=== PATIENT | female | born 1980 | race Caucasian/White ===

== ENCOUNTER 2022-07-01 11:18 | Emergency (ER) | payer BC ==
[~2022-07-01] VITALS: Ht 162.6 cm; Wt 61.2 kg
[2022-07-01] MEDS ORDERED: ASPIRIN 81 MG TAB.CHEW ONE (11:43)
[2022-07-01] MEDS ORDERED: LORAZEPAM 1 MG TABLET ONE (11:43)
[2022-07-01] MEDS ORDERED: IBUPROFEN 400 MG TABLET ONE (11:44)
[2022-07-01] MEDS ORDERED: LORAZEPAM 0.5 MG TABLET PO ONE (11:45)
[2022-07-01] MEDS ORDERED: ASPIRIN 81 MG TAB.CHEW PO ONE (11:45)
[2022-07-01] MEDS ORDERED: IBUPROFEN 400 MG TABLET PO ONE (11:45)
[2022-07-01 12:02] LABS: HEMATOCRIT 39.4 % (31.2-41.9); PLATELET COUNT (AUTO) 368 K/uL (179-408)
[2022-07-01 12:15] LABS: CARBON DIOXIDE 24 mmol/L (21-32); CHLORIDE 103 mmol/L (98-107); CREATININE 0.5 mg/dL (0.6-1.3); GLUCOSE 96 mg/dL (74-106); POTASSIUM 3.7 mmol/L (3.5-5.1); UREA NITROGEN, BLOOD 10 mg/dL (7-18)
[2022-07-01 12:27] LABS: ALANINE AMINOTRANSFERASE 26 U/L (14-59); ALKALINE PHOSPHATASE 67 U/L (50-136); ASPARTATE AMINOTRANSFERASE 13 U/L (15-37); BILIRUBIN,TOTAL 0.4 mg/dL (0.2-1.0); TOTAL PROTEIN, SERUM 7.5 g/dL (6.4-8.2)
--- NOTE | 2022-07-01 12:48 | NUR ---
pt seen and evaluated by dr [email or web address].
== END 2022-07-01 12:58 | disposition home or self-care (01) ==
LOC: ER 11:22
DX: R07.89 Other chest pain (principal); F41.9 Anxiety disorder, unspecified
CPT/HCPCS: 36415; 71045; 84484; 85025; 85610; 93005; A4663